=== PATIENT | male | born 1990 | race Asian ===

== ENCOUNTER 2022-02-15 07:28 | Emergency (ER) | payer OTHER ==
[~2022-02-15] VITALS: Ht 172.7 cm; Wt 65.8 kg
[2022-02-15 08:45] VITALS: BP 118/68; TEMP 98
== END 2022-02-15 09:04 | disposition home or self-care (01) ==
LOC: ED 07:28
DX: J02.0 Streptococcal pharyngitis (principal); B34.9 Viral infection, unspecified; Z20.822 Contact with and (suspected) exposure to COVID-19
CPT/HCPCS: 87502; 87635; 87651; 99283; U0003